=== PATIENT | male | born 1955 | race Asian ===

== ENCOUNTER 2018-10-04 10:05 | Emergency (ER) | payer SELFPAY ==
[~2018-10-04] VITALS: Ht 188 cm; Wt 95.3 kg
[2018-10-04 10:32] VITALS: BP 145/88
== END 2018-10-04 11:19 | disposition home or self-care (01) ==
LOC: ER 10:07
DX: S80.11XA Contusion of right lower leg, initial encounter (principal); I10 Essential (primary) hypertension; Z87.442 Personal history of urinary calculi; Z95.5 Presence of coronary angioplasty implant and graft; V49.49XA Driver injured in collision with other motor vehicles in traffic accident, initial encounter; Y93.89 Activity, other specified; Y92.410 Unspecified street and highway as the place of occurrence of the external cause; Y99.8 Other external cause status
CPT/HCPCS: 73590; 99283; A4606; Z7610